=== PATIENT | female | born 1930 | race Caucasian/White ===

== ENCOUNTER 2020-06-26 13:28 | Emergency (ER) | payer OTHER, MEDICAID, SELFPAY ==
[~2020-06-26] VITALS: Ht 162.6 cm; Wt 81.6 kg
[2020-06-26 14:02] VITALS: BP 109/63; Ht 162.6 cm; Wt 81.6 kg
== END 2020-06-26 15:05 | disposition home or self-care (01) ==
LOC: ED 13:28
DX: U07.1 COVID-19 (principal); B34.9 Viral infection, unspecified; I10 Essential (primary) hypertension; E11.9 Type 2 diabetes mellitus without complications
CPT/HCPCS: U0003